=== PATIENT | male | born 1960 | race African-American/Black ===

== ENCOUNTER → 2021-05-17 | Day surgery (SDC) | payer OTHER ==
[~2021-05-17] VITALS: Ht 175.3 cm; Wt 66.5 kg
[~2021-05-17] MED LIST: AMLODIPINE BESYL5 MG PO; ASPIRIN81 MG PO; COMPAZINE10 MG PO; COZAAR100 MG PO; DIAZEPAM 5MG TAB5 MG PO; ELIQUIS5 MG PO; FEOSOL325 MG PO; FOLIC ACID1 MG PO; GABAPENTIN 100100 MG PO; HCTZ25 MG PO; LEVETIRACETAM500 MG PO; NEURONTIN300 MG PO; NIFEDIPINE ER60 MG PO; NORCO 10-325 T1 EACH PO; NORVASC5 MG PO; PHENERGAN25 M1 PO; PLAVIX75 MG PO; PROMETHAZINE HC25 MG PR; TERAZOSIN 1MG (G1 MG PO; TOPROL XL100 MG PO; ZOFRAN8 MG PO
[2021-05-17 09:24] LABS: BUN/CREAT RATIO (CALC) 16.8 RATIO; CREATININE 1.13 mg/dL (0.67-1.17); POTASSIUM 3.9 mmol/L (3.5-5.1)
== END | disposition home or self-care (01) ==
LOC: FAS 07:56
PROVIDERS: Anesthesiology
DX: Z45.2 Encounter for adjustment and management of vascular access device (principal); I87.8 Other specified disorders of veins; I10 Essential (primary) hypertension; D50.0 Iron deficiency anemia secondary to blood loss (chronic); I73.9 Peripheral vascular disease, unspecified; M19.90 Unspecified osteoarthritis, unspecified site; E78.00 Pure hypercholesterolemia, unspecified; F11.90 Opioid use, unspecified, uncomplicated; F17.200 Nicotine dependence, unspecified, uncomplicated; Z86.73 Personal history of transient ischemic attack (TIA), and cerebral infarction without residual deficits; Z95.818 Presence of other cardiac implants and grafts; Z88.8 Allergy status to other drugs, medicaments and biological substances; Z79.01 Long term (current) use of anticoagulants; Z79.82 Long term (current) use of aspirin; Z79.899 Other long term (current) drug therapy; Z80.0 Family history of malignant neoplasm of digestive organs; Z82.49 Family history of ischemic heart disease and other diseases of the circulatory system
CPT/HCPCS: 36415; 71045; 76000; 80048; 93005; C1788; J0690; J1100; J1644; J2001; J2250; J2405; J2550; J3010; J7120

== ENCOUNTER 2021-08-22 20:24 | Inpatient (IN) | payer OTHER ==
[~2021-08-22] VITALS: Ht 175.3 cm; Wt 56.2 kg
[2021-08-22 21:15] LABS: BASOPHIL 0.1 % (0-2); EOSINOPHIL 0.7 % (0-5); HCT 35.9 % (42.0-52.0); HGB 11.8 g/dl (13.2-18.0); LYMPHOCYTE 12.8 % (15-48); MCH 27.3 pg (25.0-31.0); MCHC 32.9 g/dL (32.0-36.0); MCV 82.9 fL (78.0-100.0); MONOCYTE 9.3 % (0-12); NEUTROPHIL 76.8 % (41-80); NRBC 0; PLT 173 K/uL (150-400); RBC 4.33 M/uL (4.70-6.00)
[2021-08-22 21:35] LABS: BILIRUBIN - TOTAL 0.4 mg/dL (0.2-1.0); BUN/CREAT RATIO (CALC) 24.8 RATIO; CREATININE 2.9 mg/dL (0.67-1.17); GLOBULIN (CALCULATION) 3.9 g/dL; POTASSIUM 2.6 mmol/L (3.5-5.1); TOTAL PROTEIN 7.9 g/dL (6.4-8.2)
[2021-08-22 21:54] LABS: CORONAVIRUS 2019 SARS-COV-2 NEGATIVE (NEGATIVE); INFLUENZA A NAA NEGATIVE (NEGATIVE)
[2021-08-23 05:41] LABS: BASOPHIL 0.3 % (0-2); EOSINOPHIL 1.6 % (0-5); HCT 30.5 % (42.0-52.0); HGB 10.1 g/dl (13.2-18.0); MCH 27.7 pg (25.0-31.0); MCHC 33.1 g/dL (32.0-36.0); MCV 83.6 fL (78.0-100.0); MONOCYTE 10.4 % (0-12); MPV 9.7 fL (6.0-9.5); NEUTROPHIL 69.4 % (41-80); NRBC 0; PLT 145 K/uL (150-400); RBC 3.65 M/uL (4.70-6.00); RDW 16.9 % (11.5-14.0); WBC 6.9 K/uL (4.0-10.5)
[2021-08-23 06:06] LABS: ALBUMIN 3.1 g/dL (3.4-5.0); BILIRUBIN - TOTAL 0.3 mg/dL (0.2-1.0); BUN/CREAT RATIO (CALC) 24.2 RATIO; CREATININE 2.4 mg/dL (0.67-1.17); GLOBULIN (CALCULATION) 3.4 g/dL; POTASSIUM 3.3 mmol/L (3.5-5.1); TOTAL PROTEIN 6.5 g/dL (6.4-8.2)
--- NOTE | 2021-08-23 16:20 | NUR ---
08/23 Mr. Mahan lives alone. He is [employer] from [employer]. He is independent in the home and community. - Mr. Mahan reports to smoke marijuana from the time he wakes until he goes to bed. He reports to use marijuana because he is "hyper". Mr. Mahan states that he will no longer use marijuana. - He was provided with the "Risk of marijuana Use", counseling services and educated to meditation.
[2021-08-25 04:26] LABS: BASOPHIL 0.2 % (0-2); EOSINOPHIL 5.8 % (0-5); HCT 25.9 % (42.0-52.0); HGB 8.6 g/dl (13.2-18.0); LYMPHOCYTE 15.3 % (15-48); MCH 28.4 pg (25.0-31.0); MCHC 33.2 g/dL (32.0-36.0); MCV 85.5 fL (78.0-100.0); MPV 9.7 fL (6.0-9.5); NEUTROPHIL 67.4 % (41-80); NRBC 0; PLT 152 K/uL (150-400); RBC 3.03 M/uL (4.70-6.00); WBC 6.2 K/uL (4.0-10.5)
[2021-08-25 04:41] LABS: CREATININE 1.31 mg/dL (0.67-1.17); POTASSIUM 3.1 mmol/L (3.5-5.1)
[2021-08-25] MEDS ORDERED: ONDANSETRON ODT4 MG PO (07:24)
[2021-08-25] MEDS ORDERED: PROMETHEGA12.5 MG/SU PR (07:56)
== END 2021-08-25 16:11 | disposition home or self-care (01) | DRG 683 ==
LOC: FER 20:24 → FMS 22:51
PROVIDERS: Family Medicine; Nurse Practitioner; Nurse Practitioner Family; ADMIT Internal Medicine
DX: N17.9 Acute kidney failure, unspecified (principal); E87.2 Acidosis; Z68.1 Body mass index [BMI] 19.9 or less, adult; E86.0 Dehydration; E87.6 Hypokalemia; Z20.822 Contact with and (suspected) exposure to COVID-19; R63.6 Underweight; R11.2 Nausea with vomiting, unspecified; F12.90 Cannabis use, unspecified, uncomplicated; I10 Essential (primary) hypertension; E78.5 Hyperlipidemia, unspecified; F17.210 Nicotine dependence, cigarettes, uncomplicated; N40.0 Benign prostatic hyperplasia without lower urinary tract symptoms; Z86.73 Personal history of transient ischemic attack (TIA), and cerebral infarction without residual deficits; Z90.49 Acquired absence of other specified parts of digestive tract; Z98.890 Other specified postprocedural states; Z79.01 Long term (current) use of anticoagulants; Z79.82 Long term (current) use of aspirin; Z79.899 Other long term (current) drug therapy; Z95.828 Presence of other vascular implants and grafts
CPT/HCPCS: 36415; 80048; 80053; 83605; 85025; 85379; 93971; J0780; J1170; J1642; J2405; J2550; J2765; J3480; J7030; J7120; U0002

== ENCOUNTER 2021-10-08 07:34 | Day surgery (SDC) | payer OTHER ==
[~2021-10-08] VITALS: Ht 175.3 cm; Wt 60.9 kg
[~2021-10-08 07:34] MED LIST changes: +ONDANSETRON ODT4 MG PO; +PROMETHEGA12.5 MG/SU PR
[2021-10-08 08:27] LABS: INR 1.21 (0.9-1.2); PROTHROMBIN TIME 14.7 SECONDS (11.8-13.4); PTT 43.8 SECONDS (24.4-34.7)
[2021-10-08 14:47] LABS: HCT 30.9 % (42.0-52.0); MCH 29.1 pg (25.0-31.0); MCHC 32.4 g/dL (32.0-36.0); MCV 89.8 fL (78.0-100.0); MPV 9.3 fL (6.0-9.5); RBC 3.44 M/uL (4.70-6.00); WBC 9.8 K/uL (4.0-10.5)
[2021-10-08 15:09] LABS: ALBUMIN 3.6 g/dL (3.4-5.0); BILIRUBIN - TOTAL 0.2 mg/dL (0.2-1.0); BUN/CREAT RATIO (CALC) 14.6 RATIO; CREATININE 0.96 mg/dL (0.67-1.17); GLOBULIN (CALCULATION) 3.5 g/dL; POTASSIUM 3.5 mmol/L (3.5-5.1); TOTAL PROTEIN 7.1 g/dL (6.4-8.2)
[2021-10-09 09:07] LABS: BASOPHIL 0.1 % (0-2); EOSINOPHIL 0 % (0-5); HCT 32.4 % (42.0-52.0); HGB 10.7 g/dl (13.2-18.0); LYMPHOCYTE 7.1 % (15-48); MCH 28.8 pg (25.0-31.0); MCV 87.1 fL (78.0-100.0); MONOCYTE 7.7 % (0-12); MPV 9.3 fL (6.0-9.5); NEUTROPHIL 84.9 % (41-80); NRBC 0; PLT 283 K/uL (150-400); RBC 3.72 M/uL (4.70-6.00); RDW 17.8 % (11.5-14.0); WBC 8.7 K/uL (4.0-10.5)
[2021-10-09 09:22] LABS: ALBUMIN 4.1 g/dL (3.4-5.0); ALKALINE PHOSHATASE 89 U/L (46-116); ALT 22 U/L (16-63); AST 13 U/L (15-37); BILIRUBIN - DIRECT <0.05 mg/dL (0.00-0.20); BILIRUBIN - TOTAL 0.2 mg/dL (0.2-1.0); BUN 17 mg/dL (7-18); BUN/CREAT RATIO (CALC) 15.2 RATIO; CHLORIDE 101 mmol/L (98-107); CO2 (BICARBONATE) 28 mmol/L (21-32); CREATININE 1.12 mg/dL (0.67-1.17); GLOBULIN (CALCULATION) 3.8 g/dL; GLUCOSE 128 mg/dL (74-106); POTASSIUM 3.4 mmol/L (3.5-5.1); TOTAL PROTEIN 7.9 g/dL (6.4-8.2)
[2021-10-09] MEDS ORDERED: PROTONIX 40MG T40 MG PO (12:21)
== END 2021-10-09 19:22 | disposition home or self-care (01) ==
LOC: FAS 07:34 → FTCU 13:24 → FAS 10-09 19:22
PROVIDERS: Family Medicine; Student in an Organized Health Care Education/Training Program
DX: K31.811 Angiodysplasia of stomach and duodenum with bleeding (principal); K29.81 Duodenitis with bleeding; K44.9 Diaphragmatic hernia without obstruction or gangrene; K31.9 Disease of stomach and duodenum, unspecified; D50.9 Iron deficiency anemia, unspecified; K62.1 Rectal polyp; K57.30 Diverticulosis of large intestine without perforation or abscess without bleeding; K64.8 Other hemorrhoids; Z86.010 Personal history of colon polyps; Z80.0 Family history of malignant neoplasm of digestive organs; I10 Essential (primary) hypertension; M19.90 Unspecified osteoarthritis, unspecified site; F17.210 Nicotine dependence, cigarettes, uncomplicated; F12.929 Cannabis use, unspecified with intoxication, unspecified; Z91.011 Allergy to milk products; Z79.01 Long term (current) use of anticoagulants; Z79.82 Long term (current) use of aspirin; Z79.899 Other long term (current) drug therapy; Z90.49 Acquired absence of other specified parts of digestive tract
CPT/HCPCS: 36415; 71260; 74018; 80048; 80053; 80076; 82150; 83605; 83690; 84484; 85025; 85610; 85730; C9113; J0171; J0360; J0780; J1100; J1170; J1642; J2250; J2405; J2550; J2704; J7120; Q9967